=== PATIENT | female | born 1950 | race Caucasian/White ===

== ENCOUNTER → 2017-12-08 | Outpatient (CLI) | payer MEDICARE, OTHER ==
[~2017-12-08] MED LIST: CARVEDILOL6.25 MG PO; CELEBREX200 MG PO; GABAPENTIN TAB600 MG PO; GABAPENTIN300 M1 PO; NORCO 325 MG-7.1 TAB PO; PERCOCET 325 MG1 TA2 PO; PRILOTC PO; RT SPIRIVA18 MCG IH; ULTRAM50 MG PO; UNABLE; VALTURNA PO; VICODIN PO
== END ==
LOC: COL.LAB 11:11
DX: Z01.812 Encounter for preprocedural laboratory examination (principal)

== ENCOUNTER → 2018-12-01 | Outpatient (CLI) | payer MEDICARE, OTHER | LOC: COL.RAD 11:20 | DX: R19.8 Other specified symptoms and signs involving the digestive system and abdomen (principal); R10.13 Epigastric pain | CPT/HCPCS: A9537 ==

== ENCOUNTER → 2020-08-31 | Outpatient (CLI) | payer MEDICARE, OTHER ==
[~2020-08-31] VITALS: Ht 162.6 cm; Wt 70.0 kg
[~2020-08-31] MED LIST changes: +MAG-OX 400400 MG/TAB PO; +PLAVIX 75MG TAB75 MG PO; +PROTONIX 40MG T40 MG PO; +TOPROL XL 25MG25 MG PO; +TRILEPTAL 300M300 MG PO
[2020-08-31 11:59] VITALS: BP 149/88; PULSE 57
[2020-08-31 13:50] VITALS: BP 145/76; PULSE 63
[2020-08-31 14:00] VITALS: BP 128/78; PULSE 60
[2020-08-31 14:15] VITALS: BP 140/79; PULSE 59
[2020-08-31 14:30] VITALS: BP 129/78; PULSE 57
== END ==
LOC: COL.RAD 11:34
DX: G50.0 Trigeminal neuralgia (principal); I63.81 Other cerebral infarction due to occlusion or stenosis of small artery; F41.9 Anxiety disorder, unspecified
CPT/HCPCS: A9585; J2704; J3010

== ENCOUNTER → 2022-06-11 | Outpatient (CLI) | payer MEDICARE, OTHER | LOC: COL.RAD 09:23 | DX: G40.909 Epilepsy, unspecified, not intractable, without status epilepticus (principal) | CPT/HCPCS: A9575 ==

== ENCOUNTER → 2022-07-22 | Outpatient (CLI) | payer MEDICARE, OTHER | LOC: COL.CARD 06-26 13:00 | DX: G40.909 Epilepsy, unspecified, not intractable, without status epilepticus (principal) ==

== ENCOUNTER 2022-10-04 14:18 | Emergency (ER) | payer MEDICARE, OTHER ==
[~2022-10-04] VITALS: Ht 162.6 cm; Wt 52.0 kg
[2022-10-04 15:02] VITALS: BP 108/68; PULSE 48; TEMP 97.4
[2022-10-04] MEDS ORDERED: TOPAMAX200 MG PO (15:17)
[2022-10-04] MEDS ORDERED: ZANAFLEX 4MG TAB4 MG PO (15:17)
[2022-10-04] MEDS ORDERED: PROBIOTIC BLEN1 EACH PO (15:18)
[2022-10-04] MEDS ORDERED: MASON NATURAL2000 IU PO (15:18)
[2022-10-04] MEDS ORDERED: CYANOCOBAL1000 MCG/1 IM (15:19)
[2022-10-04] MEDS ORDERED: KEPPRA 500MG500 MG PO (15:19)
[2022-10-04 16:17] VITALS: BP 118/68; PULSE 43
--- NOTE | 2022-10-04 16:20 | NUR ---
Pt tolerated IV keppra infusion without issue. She is aware of instructions from Dr Kong to increase her PO keppra to 1000mg BID, with a dose tonight before bed. She has not had any further seizure or syncopal-like episodes since arrival in [facility]. She remains alert and oriented. She has taken sips of water, and refused further food or fluid offers. IV DC'd with catheter intact. Site wrapped with coban. Pt transfers self from bed to wheelchair and is assisted out to 's car. from bed to wheelchair and is assisted out to 's car with belongings.
== END 2022-10-04 16:20 | disposition home or self-care (01) ==
LOC: EUO 14:18
DX: R69 Illness, unspecified (principal)
CPT/HCPCS: J1953

== ENCOUNTER → 2024-01-01 | Outpatient (CLI) | payer MEDICARE, OTHER ==
[~2024-01-01] MED LIST changes: +B-121000 MCG PO; +CYANOCOBAL1000 MCG/1 IM; +Iohexol 300 - 100 ML VIAL IV ONE; +KEPPRA 500MG500 MG PO; +MASON NATURAL2000 IU PO; +NS 100 ML IV SCH; +PROBIOTIC BLEN1 EACH PO; +SODIUM CHLORI1000 M4 PO; +TOPAMAX200 MG PO; +TYLENOL 325MG325 MG PO; +UBRELVY50 MG PO; +ZANAFLEX 4MG TAB4 MG PO
== END ==
LOC: COL.RAD 14:28
DX: R16.0 Hepatomegaly, not elsewhere classified (principal); N20.0 Calculus of kidney; N28.1 Cyst of kidney, acquired; K57.30 Diverticulosis of large intestine without perforation or abscess without bleeding; R19.7 Diarrhea, unspecified; K21.9 Gastro-esophageal reflux disease without esophagitis; R63.4 Abnormal weight loss
CPT/HCPCS: Q9967

== ENCOUNTER → 2024-01-22 | Outpatient (CLI) | payer MEDICARE, OTHER | LOC: COL.RAD 07:55 | DX: K76.9 Liver disease, unspecified (principal); R93.5 Abnormal findings on diagnostic imaging of other abdominal regions, including retroperitoneum | CPT/HCPCS: Q9967 ==